=== PATIENT | male | born 1965 | race Caucasian/White ===

== ENCOUNTER 2018-04-04 10:53 | Emergency (ER) | payer OTHER ==
[2018-04-04] MEDS ORDERED: predniSONE 20 MG TAB PO ONE (11:15)
[2018-04-04] MEDS ORDERED: valACYclovir 500 MG TAB PO ONE (11:17)
--- NOTE | 2018-04-04 11:17 | EDPHY ---
HPI/HX/ROS/PE/MDM Narrative: CHIEF COMPLAINT: Numbness in left face, facial droop HISTORY OF PRESENT ILLNESS: The patient is a 52 y/o male with a history of hypertension complaining of numbness of the left side of his face and a left- sided facial droop, onset last night. A few days ago, he reports an episode of hyperacusis of the left ear. 2 days ago, he had jaw pain on the left side of his jaw. Last night, he noticed numbness in the left cheek. This morning, he had a clear facial droop and drool from the left side of his mouth. He has associated difficulty blinking the left eye and raising the left eyebrow. He denies slurred speech, difficulty speaking, weakness or numbness in his extremities, or any other associated symptoms. He denies recent cold, cough, or other illness. He reports he has been under more stress than normal in the past couple weeks. No fever, chills, chest pain, shortness of breath, palpitations, vomiting, diarrhea, urinary complaints, headache, lightheadedness. REVIEW OF SYSTEMS: A comprehensive 10 system review of systems is otherwise negative aside from elements mentioned in the history of present illness and medical decision making. PAST MEDICAL HISTORY: Cholecystectomy in January, hypertension, peripheral edema SOCIAL HISTORY: at bedside, lives in [place], nonsmoker VITAL SIGNS: Reviewed by me GENERAL: Well-developed, well-nourished, resting comfortably in no respiratory distress. HEENT: Atraumatic. Eyes: No icterus, no injection. Mouth: moist mucous membranes. No erythema or lesions. Neck: supple with no adenopathy. LUNGS: Clear to auscultation bilaterally, no wheezes, rhonchi or rales. CARDIAC: Regular rate and rhythm, no rubs, murmurs or gallops. ABDOMEN: Soft, nontender, nondistended, bowel sounds normal. BACK: No CVA tenderness. EXTREMITIES: No trauma. No edema. Range of motion is normal throughout. NEURO: Alert and oriented. Cranial nerves are not intact. Weakness raising left eye brow. Difficulty closing left eye. Left-sided facial droop. Extra ocular eye movement intact. Sensory and motor functions normal throughout. SKIN: Warm and dry, no rash. PSYCHIATRIC: Normal mentation, no agitation. ED Course: The patient presents with difficulty blinking left eye, weakness raising left eyebrow, and left facial droop. He reports an episode of hyperacuity in the left ear and a separate episode of jaw pain in the left side, all with in the past few days. He has no other symptoms on exam. 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 Due to the severity of symptoms, he will benefit from both prednisone and valacyclovir as treatment. I have also instructed him to use artificial tears and an eye patch at night as well as lubricating eye drops during the day. Follow up instructions and return precautions given. He agrees to this course of action. First eye patch applied in the ED. - Data Points Medications Given: Discontinued Medications Prednisone (Prednisone) 60 mg PO EDNOW ONE Stop: 04/04/18 11:16 Last Admin: 04/04/18 11:33 Dose: 60 mg Valacyclovir HCl (Valtrex) 1,000 mg PO EDNOW ONE Stop: 04/04/18 11:18 Last Admin: 04/04/18 11:33 Dose: 1,000 mg General Initial Vital Signs: Initial Vital Signs Temperature (C) 36.8 C 04/04/18 10:54 Heart Rate 73 04/04/18 10:54 Respiratory Rate 16 04/04/18 10:54 Blood Pressure 156/103 H 04/04/18 10:54 O2 Sat (%) 96 04/04/18 10:54 O2 Delivery Mode Room Air Allergies/Adverse Reactions: No Known Allergies Allergy (Unverified 04/04/18 10:57) Home Medications: Medication Instructions Recorded Lipitor 04/04/18 Losartan Potassium 04/04/18 Valacyclovir HCl [Valtrex] 1,000 mg PO TID #21 tab 04/04/18 predniSONE 60 mg PO DAILY 7 Days tab 04/04/18 Departure - Departure Disposition: Home, Routine, Self-Care Clinical Impression: Rivas's palsy Condition: Good Instructions: Rivas Palsy (ED) Additional Instructions: 1. Please take both medications as directed. 2. Please use artificial tears at night. Use an eye patch and tape to keep the eye closed at night. You do not need to use an eye patch during the day. Purchase lubricating eye drops over the counter and use them to help keep your eye moist and pain free during the day. 3. Follow up with your primary care provider within the next week when you return home. 4. Return to the emergency department for any worsening of condition. Referrals: NONE *PRIMARY CARE P,. [Primary Care Provider] - As per Instructions Prescriptions: predniSONE 60 mg PO DAILY 7 Days tab Valacyclovir HCl [Valtrex] 1,000 mg PO TID #21 tab Report Scribed for: Meche Mosley Report Scribed by: Luz Marina Garcia Date of Report: 04/04/18 Time of Report: 11:51 Physician Review and Approval Statement: Portions of this note were transcribed by a medical tech. I personally performed a history, physical exam, medical decision making, and confirmed accuracy of information the transcribed note.
--- NOTE | 2018-04-04 12:07 | ASMTLACE ---
[place] Acuity / Level of Answers: No Care: Did the patient have an inpatient admission? # of Emergency department Answers: 1-2 visits in the last 6 months Score: 1 Date Signed: 04/04/2018 12:06 PM Electronically Signed By:Rosita Harley LCSW
[2018-04-04 12:14] VITALS: BP 129/69
== END 2018-04-04 12:14 | disposition home or self-care (01) ==
DX: G51.0 Bell's palsy (principal); I10 Essential (primary) hypertension
CPT/HCPCS: J7512